=== PATIENT | male | born 1965 | race Caucasian/White ===

== ENCOUNTER 2020-12-04 20:48 | Emergency (ER) | payer MEDICAID ==
[~2020-12-04] VITALS: Ht 167.6 cm; Wt 86.2 kg
[2020-12-04 21:10] VITALS: BP 172/100
[2020-12-04 23:39] LABS: BASOPHILS # (AUTO) 0.1 K/uL (0.00-0.22); BASOPHILS % (AUTO) 0.5 % (0.0-2.0); EOSINOPHILS # (AUTO) 0.2 K/uL (0-0.4); EOSINOPHILS % (AUTO) 1.1 % (0.0-4.0); HEMATOCRIT 46.7 % (36-52); HEMOGLOBIN 16.3 g/dL (12.0-18.0); LYMPHOCYTES # (AUTO) 4.4 K/uL (2.0-11.5); LYMPHOCYTES % (AUTO) 32.3 % (20.5-51.1); MEAN CORPUSCULAR HEMOGLOBIN 31 pg (27-31); MEAN CORPUSCULAR HGB CONC 35 g/dL (33-37); MEAN CORPUSCULAR VOLUME 87.8 fL (80-94); MONOCYTES % (AUTO) 7.5 % (1.7-9.3); NEUTROPHILS # (AUTO) 7.9 K/uL (1.8-7.7); NEUTROPHILS % (AUTO) 58.6 % (42.2-75.2); PLATELET COUNT (AUTO) 284 K/uL (140-450); RED BLOOD CELL COUNT(AUTO) 5.32 MIL/uL (4.20-6.10); RED CELL DISTRIBUTION WIDTH 13.7 % (11.6-13.7); WHITE BLOOD COUNT (AUTO) 13.5 K/uL (4.8-10.8)
[2020-12-04 23:56] LABS: ALBUMIN 3.2 g/dL (3.4-5.0); ANION GAP 12.5 (8-16); CARBON DIOXIDE 26.3 mmol/L (21-32); CHOL/HDL RATIO 7.2 (1-4.5); POTASSIUM 3.8 mmol/L (3.5-5.1); TOTAL BILIRUBIN 0.6 mg/dL (0.0-1.0)
[2020-12-05 00:25] VITALS: BP 166/84
== END 2020-12-05 00:25 | disposition short-term general hospital (02) ==
LOC: MED 20:48
DX: I63.9 Cerebral infarction, unspecified (principal)
CPT/HCPCS: 36415; 70450; 71045; 80053; 85025; 99291